=== PATIENT | male | born 1980 ===

== ENCOUNTER 2018-01-04 13:35 | Emergency (ER) | payer OTHER ==
[2018-01-04 13:48] VITALS: BP 138/94; PULSE 88; TEMP 97.6; O2SAT 99
[2018-01-04 14:00] VITALS: RESP 19
[2018-01-04] MEDS ORDERED: Albuterol-Ipratrop 3 mg / 0.5 (3 ml) UD INH STA ×2 (14:06→16:14)
[2018-01-04] MEDS ORDERED: Albuterol-Ipratrop 3 mg / 0.5 (3 ml) UD ONE ×2 (14:18→18:45)
--- NOTE | 2018-01-04 14:26 | RAD ---
HISTORY: Cough. COMPARISON: No prior. TECHNIQUE: Chest PA and lateral FINDINGS: LUNGS: No active pulmonary disease. PLEURA: No significant pleural effusion identified. No pneumothorax apparent. CARDIOVASCULAR: Normal. OSSEOUS STRUCTURES: No significant abnormalities. VISUALIZED UPPER ABDOMEN: Normal. OTHER FINDINGS: None. IMPRESSION: No active disease.
--- NOTE | 2018-01-04 14:35 | ED PDOC ---
HPI: SOB/CHF/COPD Time Seen by Provider: 01/04/18 14:00 Chief Complaint (Nursing): Shortness Of Breath History Per: Patient History/Exam Limitations: no limitations Current Symptoms Are (Timing): Still Present Additional Complaint(s): Mr. Marquez is a 37 year old male, with a history of asthma, who presents to the ED complaining of generalized weakness and shortness of breath on exertion. Patient states last month he has been short of breath and cough. Denies using fever, body aches, syncope or hemoptysis. Does not use any medications at home. Patient is an active smoker. PMD: Provider TBD Past Medical History Reviewed: Historical Data Vital Signs: Last Vital Signs Temp 97.6 F 01/04/18 13:44 Pulse 88 01/04/18 13:44 Resp 19 01/04/18 13:59 BP 138/94 H 01/04/18 13:44 Pulse Ox 99 01/04/18 18:35 - Medical History PMH: Asthma - Surgical History Surgical History: No Surg Hx - Family History Family History: States: Unknown Family Hx - Social History Current smoker - smoking cessation education provided: Yes (Active smoker) - Home Medications Home Medications: Ambulatory Orders Medication Instructions Recorded Albuterol HFA [Ventolin HFA 90 1 - 2 puff IH Q4 PRN #1 inhaler 01/04/18 mcg/actuation (8 g)] Azithromycin [Zithromax] 250 mg PO DAILY #6 tab 01/04/18 Prednisone 50 mg PO DAILY #4 tab 01/04/18 - Allergies Allergies/Adverse Reactions: Allergies Allergy/AdvReac Type Severity Reaction Status Date / Time No Known Allergies Allergy Verified 01/04/18 13:49 Review of Systems ROS Statement: Except As Marked, All Systems Reviewed And Found Negative Constitutional: Positive for: Weakness (Generalized weakness). Negative for: Fever, Other (body aches) Respiratory: Positive for: Cough, Shortness of Breath, Wheezing. Negative for: Other (hemoptysis) Neurological: Negative for: Other (syncope) Physical Exam - Reviewed Nursing Documentation Reviewed: Yes Vital Signs Reviewed: Yes - Physical Exam Appears: Positive for: Non-toxic Head Exam: Positive for: ATRAUMATIC, NORMAL INSPECTION, NORMOCEPHALIC Skin: Positive for: Normal Color, Warm, Dry Eye Exam: Positive for: Normal appearance, EOMI, PERRL ENT: Positive for: Pharyngeal Erythema. Negative for: Tonsillar Exudate (or thrush) Neck: Positive for: Normal Cardiovascular/Chest: Positive for: Regular Rate, Rhythm Respiratory: Positive for: Wheezing (Bilateral). Negative for: Respiratory Distress Gastrointestinal/Abdominal: Positive for: Normal Exam Back: Positive for: Normal Inspection Extremity: Positive for: Normal ROM. Negative for: Pedal Edema, Deformity Neurologic/Psych: Positive for: Alert, Oriented (x 3). Negative for: Motor/ Sensory Deficits - Laboratory Results Result Diagrams: 01/04/18 14:20 01/04/18 14:20 - ECG O2 Sat by Pulse Oximetry: 99 (RA) Pulse Ox Interpretation: Normal Medical Decision Making Medical Decision Making: Work up for asthma r/o pneumonia Time: 14:01 Plan: - BNP - CMP - Troponin I - CBC - Chest X-Ray - Duoneb 3 mg/0.5 mg (3 ml) UD - SOLU-Medrol 125 mg IVP ONCE one - Peak Flow Pre/Post Treatment - Influenza A/B - Urinalysis Stat Time: 14:24 Chest X-Ray FINDINGS: LUNGS: No active pulmonary disease. PLEURA: No significant pleural effusion identified. No pneumothorax apparent. CARDIOVASCULAR: Normal. OSSEOUS STRUCTURES: No significant abnormalities. VISUALIZED UPPER ABDOMEN: Normal. OTHER FINDINGS: None. IMPRESSION: No active disease. (-) for influenza a/b labs reveal mild anemia unremarkable chem/ BNP, neg trop Slept in ED for approx 2 hours without respiratory distress given length of symptoms, smoker, Rx azithromycin/ albuterol/ prednisone Followup PMD/clinic No evidence of respiratory failure on DC, ambulating without difficulty or dyspnea Scribe Attestation: Documented by Frantz Winter, acting as a scribe for Dylon Thompson III, DO Provider Scribe Attestation: All medical record entries made by the Scribe were at my direction and personally dictated by me. I have reviewed the chart and agree that the record accurately reflects my personal performance of the history, physical exam, medical decision making, and the department course for this patient. I have also personally directed, reviewed, and agree with the discharge instructions and disposition. Disposition - Clinical Impression Clinical Impression: Asthma exacerbation, Bronchitis - Patient ED Disposition Is Patient to be Admitted: No Counseled Patient/Family Regarding: Studies Performed, Diagnosis, Need For Followup - Disposition Referrals: [facility] [place] [Outside] Disposition: Routine/Home Disposition Time: 18:45 Condition: STABLE Prescriptions: Albuterol HFA [Ventolin HFA 90 mcg/actuation (8 g)] 1 - 2 puff IH Q4 PRN #1 inhaler PRN Reason: Shortness Of Breath Azithromycin [Zithromax] 250 mg PO DAILY #6 tab Prednisone 50 mg PO DAILY #4 tab Instructions: Asthma in Adults, Acute Bronchitis, Adult (DC) Forms: [employer] (Korean)
[2018-01-04 14:47] LABS: BASO # 0.1 K/uL (0.0-0.2); EOS # 0.9 K/uL (0.0-0.7); EOS % 10.3 % (0.0-4.0); HEMOGLOBIN 11.9 g/dL (12.0-18.0); LYMPH # 1.6 K/uL (1.0-4.3); MEAN CELL VOLUME 61.7 fl (80.0-94.0); MEAN CORPUSCULAR HEMOGLOBIN 19.8 pg (27.0-31.0); MEAN CORPUSCULAR HGB CONC 32.1 g/dL (33.0-37.0); MEAN PLATELET VOLUME 8.6 fl (7.2-11.7); MONO # 0.6 K/uL (0.0-0.8); MONO % 6.5 % (0.0-10.0); NEUT # 5.5 K/uL (1.8-7.0); NEUT % 64.2 % (50.0-75.0); NRBC % 0.1 % (0.0-0.0); RBC 5.98 Mil/uL (4.40-5.90); RED CELL DISTRIBUTION WIDTH 16.7 % (11.5-14.5); WHITE BLOOD COUNT 8.6 K/uL (4.8-10.8)
[2018-01-04 14:57] LABS: ALB/GLOB RATIO 1.2 (1.0-2.1); ALT/SGPT 31 U/L (21-72); AST/SGOT 29 U/L (17-59); BLOOD UREA NITROGEN 13 mg/dl (9-20); CALCIUM 9.4 mg/dL (8.4-10.2); GFR AFRICAN-AMERICAN > 60; GFR NON-AFRICAN AMERICAN > 60
[2018-01-04 15:13] LABS: B-TYPE NATRIURETIC PEPTIDE 27.2 pg/ml (0-450)
== END 2018-01-04 19:16 | disposition home or self-care (01) ==
LOC: H.ER 13:35
DX: J45.901 Unspecified asthma with (acute) exacerbation (principal); J40 Bronchitis, not specified as acute or chronic; F17.200 Nicotine dependence, unspecified, uncomplicated
CPT/HCPCS: 71046; 80053; 83880; 84484; 85025; 87804; 96374; 99283; J2930